=== PATIENT | male | born 1965 | race Asian ===

== ENCOUNTER 2024-10-13 13:37 | Outpatient (CLI) | payer OTHER, SELFPAY ==
--- OUTSIDE RECORDS SUMMARY | 2024-10-13 15:13 | XMS_ITS | Continuity of Care Document ---
Author Organization [facility] Address [address] [place] [address] Phone Care Team Providers Care Lock Expert Name Role Phone Benjy Blanco MD Unavailable Unavailable Allergies, Adverse Reactions, Alerts Substance Reaction Status Criticality NSAIDS (Non-Steroidal Anti-Inflammatory Drug) Active No Information Medications Medication Instructions Dosage Effective Dates (start - stop) Status Comments lisinopril 20 mg-hydrochlorothiazi de 12.5 mg tablet take 1 tablet by oral route every day 1.00 tablet - Active metformin 500 mg tablet take 1 tablet by oral route 2 times every day with morning and evening meals 500 MG - Active pravastatin 40 mg tablet take 1 tablet by oral route every day 40 MG - Active Procedures Procedure Date OFFICE/OUTPATIENT VISIT, [facility] REFRACTION ADMINISTRATION FEE Advance Directives Directive Yes / No Effective Date File Name No Information Encounters Encounter Description Practice Location Reason(s) For Visit Diagnoses Date Provider Providers Copied on Encounter OFFICE/OUTPA TIENT VISIT, [facility] [place], [id number] [place], [place] [id number] [facility], [place], [place], [id number], [place] tel:[phone] OPH CONSULT KAMRYN LOPEZ Diabetic Eye Exam (chief complaint) Type 2 diabetes mellitus without complication, unspecified senior care insulin use statusAge-rela salazar nuclear cataract, bilateralOther vitreous opacities, bilateralHyper tension [address] [place]. [address], [address], [place], [address], [place]. tel:[phone] Referring Provider: Benjy Casillas, [id number] [place] [address] [address], [place], [address]. tel:[phone] Family History Family Member Type Diagnosis Age At Onset No Information Payers Payer name Insurance type Covered libertarian ID Lynnette marino(s) [facility] [id number] Social History Type Description Quantity Date Captured Comments Alcohol Use Details Caffeine Use Details Tobacco Use Status No Information Smoking Status Never smoker Non-Smoking Tobacco Use Details : No Details Available : No Details Available Sex Male Chief Complaint And Reason For Visit From encounter dated '07/16/2017 08:30'. Diabetic Eye Exam (chief complaint). Description: The 51 year old male is present Diabetic Eye Examin the right eye and left eye. Pt was diagnosed about 1 year(s) ago. The symptom is constant. The condition is stable. DM II Borderline for 1 year. Does not check BSL. Unsure of last A1c. Would like a copy of today's findings to go to Dr. Ivy Reason For Referral Reason For Referral No Information History Of Present Illness Encounter Date Complaint History Of Prese nt Illness Diabetic Eye Exam The 51 year ol d male is present Diabetic Eye Exam in the right eye and left eye. Pt was diagnosed about 1 year(s) ago. The symptom is constant. The condition is stable. DM II Borderline for 1 year. Does not check BSL. Unsure of last A1c. Would like a copy of today's findings to go to Dr. Ivy Functional Status Date Functional Assessmen t No Information Instructions Date Instruction Additional Infor alessandro Impression/Plan - Ad v pt to keep scheduled appointments with PCP to monitor BP. Related to Hypertension Impression/Plan - Di scussed diagnosis in detail with patient. Discussed risks and benefits and patient understands. Advised patient of condition. Reassured patient of current condition and treatment. Will continue to observe condition and or symptoms. Discussed signs and symptoms of PVD/floaters. Discussed signs and symptoms of retinal detachment. Related to Other vitreous opacities, bilateral Impression/Plan - Di abetes type II: no background retinopathy, no signs of neovascularization noted. Discussed ocular and systemic benefits of blood sugar control. Related to Type 2 diabetes mellitus without complication, unspecified senior care insulin use status Impression/Plan - Ca taracts account for the patient's complaints. No treatment currently recommended. The patient will monitor vision changes and contact us with any decrease in vision. Related to Age-related nuclear cataract, bilateral Follow up - RTO 1 year Assessments Type Assessment Date impression Type 2 diabetes jose de jesus itus without complication, unspecified senior care insulin use status: E11.9 OU. Pt is followed by Dr. Ivy. Pt states unkown last A1C and doesnt check BS. 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 Not visually signifcant at this time. impression Other vitreous opacities, bilate ral: H43.393 OU. assessment Other vitreous opacities, bilate ral impression Hypertension: I10. OU. Per PCP. assessment Hypertension Patient Care Teams Name Effective Dates (start - stop) Status Members No Information
--- OUTSIDE RECORDS SUMMARY | 2024-10-13 15:13 | XMS_ITS | Clinical Summary ---
Author Organization [facility] Address [address] [place] [address] Care Team Providers Care Copywriting Intern Name Role Phone Mansi Ivy MD Primary Care Provider Source Comments [facility] Reply,non-owned Affiliates and Associated Physician Practices is amultiple site organization consisting of ambulatory clinics and hospital sitesin [place], [place], [place] and [place]. This disclosure is being madepursuant to the Care Everywhere program and may not contain all information available regarding this patient. Last updated 18.[facility] Reply Allergies Active Allergy Reactions Criticality Noted Date Comments Ibuprofen 02/05/2017 Aspirin 02/05/2017 Social History Tobacco Use Types Packs/Day Years Used Date Smoking Tobacco: Never Assessed Sex and Gender Information Value Date Recorded Sex Assigned at Not on file Gender Identity Not on file Sexual Orientation Not on file Plan of Treatment Health Maintenance Due Date Last Done Comments COLOGUARD (AGES 45-75) - COL ON CA SCREENING 1965 COLON MONITORING 1965 COLONOSCOPY - COLON CA SCREENING 1965 CT COLONOGRAPHY - COLON CA SCREENING 1965 Colorectal Cancer Screening 1965 FIT - COLON CA SCREENING 1965 FLEX SIG - COLON CA SCREENING 1965 LIPID TESTING 1965 HIV SCREENING 1980 HEPATITIS C SCREENING 11/06/1983 DTAP/TDAP/TD VACCINES (1 - Tdap) 1984 HEPATITIS B VACCINE (1 of 3 - 19+ 3-dose series) 1984 PNEUMOCOCCAL VACCINE 50+ (1 of 1 - PCV) 11/11/2015 ZOSTER VACCINE (1 of 2) 11/11/2015 COVID-19 VACCINE ( - 2023-2 5 season) 2024 DEPRESSION SCREENING 07/07/2024 INFLUENZA VACCINE (Season Ended) 2025 HIB VACCINE Aged Out No longer eligi ble based on patient's age to complete this topic HPV VACCINE Aged Out No longer eligi ble based on patient's age to complete this topic MENINGOCOCCAL (Group B) VACC INE SHARED DECISION-MAKING Aged Out No longer eligibl e based on patient's age to complete this topic MENINGOCOCCAL GROUPS A/C/Y/W VACCINE Aged Out No longer eligible b ased on patient's age to complete this topic PNEUMOCOCCAL VACCINE Aged Out No long er eligible based on patient's age to complete this topic Care Teams Copywriting Intern Relationship Specialty Start Date End Date Mansi Ivy MD [address] [place], [place] [phone] PCP - General Internal Medicine 02/05/17
[2024-10-13 15:25] LABS: Kit Draw Collected
== END 2024-10-13 13:38 | disposition home or self-care (01) ==
LOC: ANHGOSHLAB 13:39
PROVIDERS: PCP Internal Medicine; Visit Provider Clinical Nurse Specialist
DX: E11.9 Type 2 diabetes mellitus without complications (principal); E53.8 Deficiency of other specified B group vitamins
CPT/HCPCS: 36415